=== PATIENT | male | born 1960 | race Caucasian/White ===

== ENCOUNTER 2021-01-15 07:09 | Outpatient (CLI) | payer MEDICARE, SELFPAY ==
--- NOTE | 2021-01-15 07:15 | USCV_ITS ---
Tu Chaparro Age: 60 Gender: M : 1960 Exam Date: 01/15/2021 07:22 Ordering Phys: Armen Adame MD ([email or web address]) Technologist: Nitin Foley Exam [place] [facility] [place]ication: CAD BP: 131 / 80 HR: 72 Rhythm: Sinus Technical Quality: Poor MEASUREMENTS (Male / Female) Normal Values 2D ECHO LV Diastolic Diameter PLAX 3.0 cm 4.2 - 5.9 / 3.9 - 5.3 cm LV Systolic Diameter PLAX 2.4 cm IVS Diastolic Thickness 0.8 cm 0.6 - 1.0 / 0.6 - 0.9 cm IVS Systolic Thickness 0.9 cm LVPW Diastolic Thickness 1.0 cm 0.6 - 1.0 / 0.6 - 0.9 cm LVPW Systolic Thickness 1.0 cm LVOT Diameter 2.2 cm LV Ejection Fraction 2D Teich 41.9 % LV Ejection Fraction MOD 2C 63.9 % LV Ejection Fraction 2C AL 64.6 % LA Diameter 4.3 cm LA Width 3.3 cm LA Height 4.0 cm RA Width 3.3 cm RA Height 4.7 cm M-MODE Aortic Annulus Diameter 3.3 cm LA Ao Ratio MM 1.5 DOPPLER AV Peak Velocity 113.0 cm/s LVOT Peak Velocity 98.0 cm/s AV Area Cont Eq vti 3.4 cm squared AV Area Cont Eq pk 3.2 cm squared MV Area PHT 5.0 cm squared Mitral E to A Ratio 1.4 MV E' Velocity 55.4 cm/s Mitral E to MV E' Ratio 7.5 Mitral E to LV E' Lateral Ratio 6.6 Mitral E to LV E' Septal Ratio 8.8 FINDINGS Left Ventricle Normal left ventricular size and systolic function, EF 62 %. No regional wall motion abnormalities. Right Ventricle The right ventricle is normal in size and function. Right Atrium The right atrium is normal in size. Left Atrium The left atrium is normal in size. Mitral Valve No gross abnormalities noted Aortic Valve No gross abnormalities noted Tricuspid Valve No gross abnormalities noted Pulmonic Valve No gross abnormalities noted Pericardium Normal pericardium without effusion. Aorta Normal ascending aorta dimension. CONCLUSIONS Normal left ventricular size and systolic function, EF 62 %. No regional wall motion abnormalities. No significant stenotic or regurgitant valvular lesions Normal cardiac chamber sizes. There is no pericardial effusion. No previous study is available for comparison. Dr Armen Adame MD FAC (Electronically Signed) Final Date: 15 January 2021 09:10 S
== END 2021-01-15 07:10 | disposition home or self-care (01) ==
LOC: US 07:12
PROVIDERS: PCP Nurse Practitioner Family; Visit Provider Internal Medicine Cardiovascular Disease
DX: R07.89 Other chest pain (principal); R06.02 Shortness of breath; I25.10 Atherosclerotic heart disease of native coronary artery without angina pectoris
CPT/HCPCS: 93306

== ENCOUNTER 2021-01-26 08:38 | Outpatient (CLI) | payer MEDICARE, SELFPAY ==
[2021-01-26 09:28] VITALS: BMI 39.1
--- NOTE | 2021-01-26 11:01 | ECG_ITS ---
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 Interpretive Statements NAME OF STUDY: LEXISCAN SESTAMIBI STRESS TEST INDICATION: SOB PROCEDURE: At the baseline, the EKG revealed normal sinus rhythm with normal ST-T's.. The baseline blood pressure was 142/113 mm Hg with a heart rate of 61 beats/min. Lexiscan was infused over a period of 20 seconds. A total of 0.4 milligrams of Lexiscan was infused. The stress phase was continued for a total of 5 minutes. Heart rate at the end of the stress phase was 79 with a blood pressure 144/73. The EKG at the peak infusion revealed no significant changes. Sestamibi was injected 20 seconds after the Lexiscan infusion. Blood pressure at the end of the recovery phase was 131/76 with a heart rate of 81 per minute. CONCLUSION: 1. No significant EKG changes with the LexiScan infusion 2. No LexiScan induced chest pain or cardiac arrhythmia 3. Normal blood pressure and heart rate response 4. Sestamibi/sestamibi perfusion scan pending; see separate report. Electronically Signed On 01-29-2021 9:23:35 CDT by Armen Adame M.D. [email or web address]
--- NOTE | 2021-01-26 11:02 | NMCV_ITS ---
NM jennifer perf SPECT r/s* [id number] Tu Chaparro Age: 60 Gender: M : 1960 Exam Date: 01/26/2021 11:01 Ordering Phys: Armen Adame MD ([email or web address]) Technologist: ALDA Valencia Exam Location: [facility] Indications: SOB STRESS TEST Please [facility] IMAGE PROTOCOL Rest/Stress 1 Lexiscan Day Radiopharmaceutical Dose (mCi) Administration Site Administered by Rest: Tc-99m 10.7 IV ALDA Carrillo Sestamibi Stress:Tc-99m 33.0 IV ALDA Valencia Sestamistephen Rest: 26-Jan-2021 60 Discovery 630 Stress: 26-Jan-2021 45 Discovery 630 0.4mg Lexiscan. Images obtained in supine and prone position. SPECT RESULTS Technical Quality: Good Raw Data Analysis: Subdiaphragmatic activity Image Corrections: No attenuation or motion correction applied Summed Stress Score: 2 Summed Rest Score: 5 Summed Difference Score: 0 PERFUSION FINDINGS Small area of decreased aseptic was noted in the basal ,mid and apical inferior wall region with no significant reversibility. Patchy areas of decreased aseptic also noted in the anteroseptal and basal inferolateral regions with no significant reversibility. FUNCTIONAL RESULTS (calculated via Gated SPECT) Stress Image LV EF (%): 64 Stress EDV (mL):99 TID: 0.97 Stress ESV (mL):36 FUNCTIONAL FINDINGS: Segmental wall motion analysis revealing no gross wall motion abnormalities. IMPRESSIONS 1. Myocardial perfusion imaging revealing a small area of persistent decrease tracer uptake in inferior wall region, suggestive of myocardial scarring versus attenuation artifact. 2. Normal LV ejection fraction 64%. 3. LV wall motion analysis revealing no gross wall motion normalities. 4. Normal LV volume. No significant coronary ischemia, based on the above findings. Dr Armen Adame MD FAC (Electronically Signed) Final Date: 27 January 2021 09:38 S
[2021-01-26] MEDS: regadenoson 0.4 Mg/5 ml Syringe IVP (11:45)
[2021-01-26 11:58] VITALS: BP 131/76; PULSE 81
== END 2021-01-26 08:39 | disposition home or self-care (01) ==
LOC: CDL 08:42
PROVIDERS: PCP Nurse Practitioner Family; Visit Provider Internal Medicine Cardiovascular Disease
DX: R06.02 Shortness of breath (principal)
CPT/HCPCS: 78452; 93017; A9500; J2785

== ENCOUNTER 2022-02-19 12:37 | Outpatient (CLI) | payer MEDICARE, SELFPAY ==
--- NOTE | 2022-02-19 12:52 | CT_ITS ---
WS: [id number] LDCT LUNG CANCER SCREENING HISTORY: NICOTINE DEPENDENCE TECHNIQUE: Axial imaging performed from the apices to 1 cm below the costophrenic angles. Coronal and sagittal reformats are submitted with axial MIP series. All CT scans at [facility] use at least one of these dose optimization techniques: automated exposure control; mA and/or kV adjustment per patient size (includes targeted exams where dose is matched to clinical indication); or iterativ e reconstruction. DLP: 68.52 mGy.cm DIvol: Mean CTDIvol: 1.60 (mGy) COMPARISON: None available. Diagnostic quality: Satisfactory Lung Nodules: No pulmonary nodules or endobronchial lesions are identified. Lungs: The lungs is very slightly hyperexpanded. There is a small bleb in the anterior LEFT upper lob e with adjacent focal bronchiectasis or additional blebs. No mass or pneumonia. Heart: Normal size heart. There is extensive calcifications within the [place] coronary arteries. No p ericardial effusion. Other findings: Mildly prominent pulmonary artery. Very minimal atherosclerotic changes within the th oracic aorta. No adenopathy. Mild thoracic spondylitic changes. No destructive bone lesions. CT/CT lung screening [id number] IMPRESSION: LUNG-RADS: 1S-Negative with Significant Findings FOLLOW UP: 12 Month: Continue annual screening with LDCT OTHER FINDINGS (S MODIFIER): There is extensive coronary artery calcification. Evaluation by cardiology may be indicated if this is a new diagnosis.
== END 2022-02-19 12:38 | disposition home or self-care (01) ==
LOC: RAD 12:45
PROVIDERS: PCP Nurse Practitioner Family; Visit Provider Nurse Practitioner Family
DX: Z12.2 Encounter for screening for malignant neoplasm of respiratory organs (principal); Z87.891 Personal history of nicotine dependence
CPT/HCPCS: 71271

== ENCOUNTER → 2022-04-02 09:43 | Outpatient (BNVA) | payer MEDICARE, SELFPAY | PROVIDERS: PCP Nurse Practitioner Family; Visit Provider Internal Medicine Critical Care Medicine | DX: I25.10 Atherosclerotic heart disease of native coronary artery without angina pectoris (principal); Z87.09 Personal history of other diseases of the respiratory system; G47.33 Obstructive sleep apnea (adult) (pediatric); J43.9 Emphysema, unspecified; Z87.891 Personal history of nicotine dependence; E11.8 Type 2 diabetes mellitus with unspecified complications; I10 Essential (primary) hypertension | CPT/HCPCS: 99204 ==

== ENCOUNTER 2022-04-22 07:32 | Outpatient (CLI) | payer MEDICARE, SELFPAY ==
--- NOTE | 2022-04-22 10:29 | PFTS_ITS ---
Date of Study:04/22/22 Date of Dictation: MECHANICS: Forced vital capacity (FVC) is normal. Forced expiratory volume in one second (FEV1) is normal. FEV1/FVC is normal. FLOW VOLUME LOOP: Normal. LUNG VOLUMES: Total lung capacity (TLC) is normal. Residual volume (RV) is normal. DIFFUSING CAPACITY FOR CARBON MONOXIDE: Normal. INTERPRETATION: The pulmonary function tests are normal. MTDD
== END 2022-04-22 07:33 | disposition home or self-care (01) ==
PROVIDERS: PCP Nurse Practitioner Family; Visit Provider Internal Medicine Critical Care Medicine
DX: Z87.09 Personal history of other diseases of the respiratory system (principal)
CPT/HCPCS: 94060; 94726; 94729; J7611

== ENCOUNTER → 2022-05-20 08:25 | Outpatient (BNVA) | payer MEDICARE, SELFPAY | PROVIDERS: PCP Nurse Practitioner Family; Visit Provider Internal Medicine Critical Care Medicine | DX: J43.9 Emphysema, unspecified (principal); I25.10 Atherosclerotic heart disease of native coronary artery without angina pectoris; G47.33 Obstructive sleep apnea (adult) (pediatric); Z87.891 Personal history of nicotine dependence | CPT/HCPCS: 99214 ==

== ENCOUNTER → 2022-11-22 11:28 | Outpatient (BNVA) | payer MEDICARE, SELFPAY | PROVIDERS: PCP Family Medicine; Visit Provider Internal Medicine Pulmonary Disease | DX: R06.02 Shortness of breath (principal); G47.33 Obstructive sleep apnea (adult) (pediatric); R00.1 Bradycardia, unspecified; J43.9 Emphysema, unspecified; I25.10 Atherosclerotic heart disease of native coronary artery without angina pectoris; I25.2 Old myocardial infarction; Z87.891 Personal history of nicotine dependence | CPT/HCPCS: 99214 ==

== ENCOUNTER → 2022-11-22 11:28 | Outpatient (BNVA) | payer MEDICARE, SELFPAY | PROVIDERS: PCP Family Medicine; Visit Provider Internal Medicine Pulmonary Disease | DX: R00.1 Bradycardia, unspecified (principal); R06.02 Shortness of breath; J43.9 Emphysema, unspecified; G47.33 Obstructive sleep apnea (adult) (pediatric); I25.10 Atherosclerotic heart disease of native coronary artery without angina pectoris; Z87.09 Personal history of other diseases of the respiratory system; Z87.891 Personal history of nicotine dependence | CPT/HCPCS: 80048; 83735 ==

== ENCOUNTER 2023-02-16 09:17 | Outpatient (CLI) | payer MEDICARE, SELFPAY ==
--- NOTE | 2023-02-16 08:45 | CT_ITS ---
WS: [id number] LDCT LUNG CANCER SCREENING HISTORY: lung screening TECHNIQUE: Axial imaging performed from the apices to 1 cm below the costophrenic angles. Coronal and sagittal reformats are submitted with axial MIP series. All CT scans at [facility] use at least one of these dose optimization techniques: automated exposure control; mA and/or kV adjustment per patient size (includes targeted exams where dose is matched to clinical indication); or iterativ e reconstruction. DLP: 87.39 mGy.cm DIvol: Mean CTDIvol: 1.60 (mGy),Mean CTDIvol: 1.60 (mGy) COMPARISON: None available. Diagnostic quality: Satisfactory Lungs: Mild emphysema. Mild interstitial thickening and reticulations in the periphery of the lungs. There are no suspicious masses. No endobronchial lesions. Heart: Normal size heart. No pericardial effusion.. Other findings: Advanced dense calcification coronary arteries. Mild atherosclerosis aorta. Normal si ze pulmonary artery. No adenopathy. Small hiatal hernia. Cholelithiasis. CT/CT lung screening [id number] IMPRESSION: LUNG-RADS: 1S-Negative with Significant Findings FOLLOW UP: 12 Month: Continue annual screening with LDCT OTHER FINDINGS (S MODIFIER): Cholelithiasis and advanced coronary artery calcif ication. Consider evaluation by cardiology.
== END 2023-02-16 09:18 | disposition home or self-care (01) ==
PROVIDERS: PCP Family Medicine; Visit Provider Internal Medicine Pulmonary Disease
DX: Z12.2 Encounter for screening for malignant neoplasm of respiratory organs (principal); Z87.891 Personal history of nicotine dependence
CPT/HCPCS: 71271; 80048; 83735

== ENCOUNTER → 2023-05-18 10:46 | Outpatient (BNVA) | payer MEDICARE, SELFPAY | PROVIDERS: PCP Family Medicine; Visit Provider Internal Medicine Cardiovascular Disease | DX: R00.1 Bradycardia, unspecified (principal); G47.33 Obstructive sleep apnea (adult) (pediatric); E11.65 Type 2 diabetes mellitus with hyperglycemia; Z79.4 Long term (current) use of insulin; E78.5 Hyperlipidemia, unspecified; I10 Essential (primary) hypertension; I25.10 Atherosclerotic heart disease of native coronary artery without angina pectoris; J44.9 Chronic obstructive pulmonary disease, unspecified; Z87.891 Personal history of nicotine dependence; Z79.82 Long term (current) use of aspirin | CPT/HCPCS: 99214 ==

== ENCOUNTER → 2023-06-29 10:59 | Outpatient (BNVA) | payer MEDICARE, SELFPAY | PROVIDERS: PCP Family Medicine; Visit Provider Internal Medicine Cardiovascular Disease | DX: R00.1 Bradycardia, unspecified (principal); G47.33 Obstructive sleep apnea (adult) (pediatric); Z87.09 Personal history of other diseases of the respiratory system; E11.65 Type 2 diabetes mellitus with hyperglycemia; Z79.4 Long term (current) use of insulin; I10 Essential (primary) hypertension; I25.10 Atherosclerotic heart disease of native coronary artery without angina pectoris; Z87.891 Personal history of nicotine dependence | CPT/HCPCS: 99214 ==

== ENCOUNTER → 2023-08-16 12:23 | Outpatient (BNVA) | payer MEDICARE, SELFPAY | PROVIDERS: PCP Family Medicine; Visit Provider Internal Medicine Cardiovascular Disease | DX: R00.1 Bradycardia, unspecified (principal); G47.33 Obstructive sleep apnea (adult) (pediatric); E11.65 Type 2 diabetes mellitus with hyperglycemia; Z79.4 Long term (current) use of insulin; R06.02 Shortness of breath; E78.5 Hyperlipidemia, unspecified; I10 Essential (primary) hypertension; I25.10 Atherosclerotic heart disease of native coronary artery without angina pectoris; Z87.891 Personal history of nicotine dependence | CPT/HCPCS: 99213 ==

== ENCOUNTER 2023-10-15 16:10 | Emergency (ER) | payer MEDICARE, SELFPAY ==
[2023-10-15 17:17] VITALS: BP 141/80; PULSE 82; RESP 18; TEMP 36.8; O2SAT 94
--- NOTE | 2023-10-15 18:44 | XRR_ITS ---
PROCEDURE INFORMATION: Exam: XR Right Knee Exam date and time: 10/15/2023 6:57 PM Age: 63 years old Clinical indication: Injury or trauma; Blunt trauma; Right; Patient HX: Fall this evening C/O knee pain TECHNIQUE: Imaging protocol: Radiologic exam of the right knee. Views: 3 views. COMPARISON: No relevant prior studies available. FINDINGS: Bones/joints: No fractures or dislocations noted.. Soft tissues: There is a small suprapatellar effusion. There is soft tissue swelling around the knee predominantly on the medial aspect. There is a linear density between the tibia and fibula in the proximal 3rd. XR/XR knee RT 3V* [id number] IMPRESSION: Small suprapatellar effusion with no fractures or dislocations noted.
--- NOTE | 2023-10-15 19:02 | ED_ITS ---
HPI - Extremity Problem General: Chief complaint: Extremity Problem,Nontraumatic Stated complaint: right knee pain Time Seen by Provider: 10/15/23 18:53 History of Present Illness: 63-year-old male patient comes in today for injury to the right knee and right knee pain anteriorly. Patient reports this morning around 7:00 he slipped and fell with his knee going forwards and flexing striking the stairwell. Patient has been ambulatory on the knee with some pain in the anterior part of the knee. Patient appears nontoxic. Patient also reports a history of prior injury to the right ankle which had to be fused. Patient appears nontoxic. Patient appears in no pain at rest. Review of Systems General: Reports: 10 or more systems reviewed and unremarkable except in HPI and below Musc: Reports: extremity pain (Right lower leg pain) and joint pain (Right knee pain) PFSH ED PFSH: Medical History Family history of diabetes mellitus Family history of heart attack Family history of pacemaker Family history of pancreatic cancer Family history of paroxysmal supraventricular tachycardia History of anesthesia complications History of COPD History of COPD History of hypertension Hx of hypercholesterolemia Hx of hypokalemia Hx of smoking Surgical History H/O vasectomy History of ankle surgery History of PTCA Family History Father CAD (coronary artery disease) Myocardial infarction Cancer Diabetes Mother CAD (coronary artery disease) Diabetes Pacemaker Myocardial infarction Stroke Brother CAD (coronary artery disease) Cancer Myocardial infarction Heart transplanted Bleeding disorder Clotting disorder Daughter Chronic kidney disease (CKD) Sister Manic depression Son SVT (supraventricular tachycardia) Denies family history of Dementia Suicide Anesthesia complication Social History Smoking and tobacco/nicotine status: former use of tobacco/nicotine Quit status (tobacco/nicotine): has quit using Year quit tobacco: 2011 Former quit date comment: 4.5 ppd X 15 years Alcohol intake: never Substance/Drug Use: never Physical Exam Const: COMMON NORMALS: alert HENMT: COMMON NORMALS: normocephalic HEAD & SCALP: normocephalic Neck/C-Spine: COMMON NORMALS: full ROM Resp: COMMON NORMALS: normal respiratory effort and clear to auscultation bilaterally AUSCULTATION: clear to auscultation bilaterally Cardio: COMMON NORMALS: regular rate and regular rhythm RATE: regular rate RHYTHM: regular rhythm GI: COMMON NORMALS: Soft to palpation PALPATION: Yes Soft to palpation Back/Pelvis: COMMON NORMALS: thoracic and lumbar spine normal to inspection Extremity: RIGHT LOWER EXTREMITY: Yes knee joint (Anterior knee/patellar tenderness, superficial abrasion) Neuro: SENSORIUM/ORIENTATION: Yes alert Skin: TRAUMA: abrasion (Superficial right anterior knee) Course Vital Signs: Vital signs: Vital Signs Temperature 98.3 F 10/15/23 17:17 Pulse Rate 82 10/15/23 17:17 Respiratory Rate 18 10/15/23 17:17 Blood Pressure 141/80 10/15/23 17:17 Pulse Oximetry 94 10/15/23 17:17 Oxygen Delivery Me thod Room Air 10/15/23 17:17 MDM - Extremity (Nontraumatic) Medical Decision Making 63-year-old male patient comes in today for injury to the right knee. On exam patient has some tenderness to the anterior knee with mild abrasion. Distal pulses are intact. Patient has some mild swelling to the right lower extremity. Vital signs are normal. Patient is weightbearing with minimal to moderate pain. Differential diagnosis includes but not limited to fracture, contusion, internal derangement of the knee, meniscal tear. X-ray noted no acute changes. Reviewed exam with patient with recommendations for treatment and follow-up. Patient reported understanding and agreed to plan. XR interpretation done by ED provider, pending radiology final review Discharge Plan Discharge Patient Disposition: Home Clinical Impression: Fall (on) (from) other stairs and steps, initial encounter Contusion of knee, right Qualifiers: Encounter type: initial encounter Qualified Code(s): S80.01XA - Contusion of right knee, initial encounter Condition: Stable Prescriptions: No Action chlorthalidone 25 mg tablet 25 mg PO DAILY fenofibrate nanocrystallized 145 mg tablet 145 mg PO DAILY aspirin [Adult Aspirin Regimen] 81 mg tablet,delayed release (DR/EC) 81 mg PO DAILY atorvastatin 40 mg tablet 40 mg PO DAILY potassium chloride 20 mEq tablet extended release 20 meq PO DAILY coenzyme Q10 [Co Q-10] 100 mg capsule 100 mg PO DAILY diphenhydramine HCl [Benadryl] 25 mg capsule 25 mg PO .bedtime PRN nitroglycerin [Nitrostat] 0.4 mg tablet, sublingual 0.4 mg sublingual Q5M PRN Rx Instructions: do not exceed 3 doses per episode omega 3-rnh-slv-fish oil [Fish Oil] 1,200 (144-216) mg capsule 2 cap PO DAILY Basaglar KwikPen U-100 Insulin 100 unit/mL (3 mL) insulin pen 10 unit SUBCUT DAILY albuterol sulfate 90 mcg/actuation HFA aerosol inhaler 2 puff inhalation Q6H PRN (Reason: shortness of breath or wheezing) 30 Days Qty: 8.5 1RF B12 Active 1,000 mcg tablet,chewable 2,500 mcg PO DAILY lisinopril 20 mg tablet 20 mg PO DAILY magnesium L-lactate [Magtab] 84 mg tablet extended release 84 mg PO BID Qty: 180 3RF Discharge Orders: Discharge ED (Routine); Ordered 10/15/23 Ordered By: Edgardo Mancilla Referrals: Saurabh Cat MD [Primary Care Provider] - Discharge Diet: Usual diet Discharge Activity: Increase activity as tolerated Patient Instructions: Musculoskeletal Pain (ED) Activity Restrictions/Additional Instructions: Use acetaminophen and/or ibuprofen. Ice packs otherwise for pain and discomfort. Activity as tolerated. Follow-up with primary care with for further complaints of pain and discomfort. 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
--- NOTE | 2023-10-15 19:13 | XRR_ITS ---
PROCEDURE INFORMATION: Exam: XR Right Tibia and Fibula Exam date and time: 10/15/2023 7:27 PM Age: 63 years old Clinical indication: Injury or trauma; Blunt trauma; Right; Patient HX: Fall this evening. C/O lower leg pain. ; Additional info: Injury, fall TECHNIQUE: Imaging protocol: Radiologic exam of the right tibia and fibula. Views: 2 views. COMPARISON: CR (LOW EXM, ) 10/15/2023 6:57 PM FINDINGS: Bones/joints: There are no acute fractures or dislocations. There is a chronic fracture of the distal tibia with associated screws, hardware is intact. There are bone changes in the distal fibula.. Soft tissues: Normal. XR/XR tibia fibula RT 2V [id number] IMPRESSION: No acute findings.
== END 2023-10-15 20:03 | disposition home or self-care (01) ==
PROVIDERS: Emergency Provider Nurse Practitioner Family; PCP Family Medicine
DX: S80.01XA Contusion of right knee, initial encounter (principal); Z79.82 Long term (current) use of aspirin; Z79.4 Long term (current) use of insulin; Z87.891 Personal history of nicotine dependence; J44.9 Chronic obstructive pulmonary disease, unspecified; I10 Essential (primary) hypertension; W01.198A Fall on same level from slipping, tripping and stumbling with subsequent striking against other object, initial encounter
CPT/HCPCS: 73562; 73590; 99283

== ENCOUNTER → 2024-01-11 10:00 | Outpatient (BNVA) | payer MEDICARE, SELFPAY | PROVIDERS: PCP Family Medicine; Visit Provider Internal Medicine Cardiovascular Disease | DX: I25.10 Atherosclerotic heart disease of native coronary artery without angina pectoris (principal); I10 Essential (primary) hypertension; E78.5 Hyperlipidemia, unspecified; R00.1 Bradycardia, unspecified; E11.65 Type 2 diabetes mellitus with hyperglycemia; Z79.4 Long term (current) use of insulin; Z87.891 Personal history of nicotine dependence | CPT/HCPCS: 99214 ==

== ENCOUNTER → 2024-07-13 09:08 | Outpatient (BNVA) | payer MEDICARE, SELFPAY | PROVIDERS: PCP Family Medicine; Visit Provider Nurse Practitioner Family | DX: I25.10 Atherosclerotic heart disease of native coronary artery without angina pectoris (principal); I10 Essential (primary) hypertension; Z87.891 Personal history of nicotine dependence | CPT/HCPCS: 99214 ==

== ENCOUNTER 2024-12-18 08:20 | Outpatient (CLI) | payer MEDICARE, SELFPAY ==
--- NOTE | 2024-12-18 08:29 | CT_ITS ---
WS: [id number] LDCT LUNG CANCER SCREENING HISTORY: FORMER SMOKER TECHNIQUE: Axial imaging performed from the apices to 1 cm below the costophrenic angles. Coronal and sagittal reformats are submitted with axial MIP series. All CT scans at [facility] use at least one of these dose optimization techniques: automated exposure control; mA and/or kV adjustment per patient size (includes targeted exams where dose is matched to clinical indication); or iterative reconstruction. DLP: 140.00 mGy.cm DIvol: Mean CTDIvol: 3.40 (mGy) COMPARISON: 02/16/2023, 02/19/2022 Diagnostic quality: Satisfactory Lungs: Tiny calcified nodule at the LEFT lung base. No new or enlarging pulmonary nodules. No mass or endobronchial lesions. Heart: Normal size heart with no pericardial effusion.. Other findings: Mild pulmonary hypertension. Very minimal atherosclerosis aorta. Dense coronary artery calcifications. Small hiatal hernia. No adrenal mass. Contracted gallbladder with stones. CT/CT lung screening [id number] IMPRESSION: LUNG-RADS: 1-Negative FOLLOW UP: 12 Month: Continue annual screening with LDCT OTHER FINDINGS (S MODIFIER): None.
== END 2024-12-18 08:21 | disposition home or self-care (01) ==
LOC: RAD 08:24
PROVIDERS: PCP Family Medicine; Visit Provider Family Medicine
DX: Z12.2 Encounter for screening for malignant neoplasm of respiratory organs (principal); Z87.891 Personal history of nicotine dependence; I27.20 Pulmonary hypertension, unspecified; I25.10 Atherosclerotic heart disease of native coronary artery without angina pectoris; K44.9 Diaphragmatic hernia without obstruction or gangrene; K80.20 Calculus of gallbladder without cholecystitis without obstruction
CPT/HCPCS: 71271

== ENCOUNTER → 2025-03-19 14:05 | Outpatient (BNVA) | payer MEDICARE, SELFPAY | PROVIDERS: PCP Family Medicine; Visit Provider Internal Medicine Cardiovascular Disease | DX: I25.10 Atherosclerotic heart disease of native coronary artery without angina pectoris (principal); I10 Essential (primary) hypertension; E78.5 Hyperlipidemia, unspecified; R00.1 Bradycardia, unspecified; E11.65 Type 2 diabetes mellitus with hyperglycemia; Z79.4 Long term (current) use of insulin; Z79.84 Long term (current) use of oral hypoglycemic drugs; Z79.82 Long term (current) use of aspirin; Z95.5 Presence of coronary angioplasty implant and graft; Z87.891 Personal history of nicotine dependence | CPT/HCPCS: 99214 ==

== ENCOUNTER → 2025-10-18 09:35 | Outpatient (BNVA) | payer MEDICARE, SELFPAY | PROVIDERS: PCP Family Medicine; Visit Provider Nurse Practitioner Family | DX: I25.10 Atherosclerotic heart disease of native coronary artery without angina pectoris (principal); E78.5 Hyperlipidemia, unspecified; I10 Essential (primary) hypertension; E11.9 Type 2 diabetes mellitus without complications; J44.9 Chronic obstructive pulmonary disease, unspecified; Z87.891 Personal history of nicotine dependence; Z79.4 Long term (current) use of insulin | CPT/HCPCS: 99214 ==